=== PATIENT | female | born 1985 | race Caucasian/White ===

== ENCOUNTER 2017-01-27 07:55 | Emergency (ER) | payer SELFPAY ==
--- NOTE | 2017-01-27 08:17 | ER Document Report ---
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 prutitis, scratched, then looked like hives, less red today, few blisters now. No one else in family has them. Associated Symptoms: None Exacerbated by: Denies Relieved by: Denies - ROS ROS below otherwise negative: Yes Systems Reviewed and Negative: Yes All other systems reviewed and negative - REPRODUCTIVE LMP: 4 weeks Reproductive: DENIES: : - DERM Skin Color: Normal Past Medical History - General Information source: Patient - Social History Smoking Status: Never Smoker Frequency of alcohol use: None Drug Abuse: None Lives with: Parents Family History: Reviewed & Not Pertinent Patient has suicidal ideation: No Patient has homicidal ideation: No - Past Medical History Cardiac Medical History: Reports: Hx Hypercholesterolemia - Stopped taking medication 2 years ago, Hx Hypertension - White coat hypertension, no medications Pulmonary Medical History: Neurological Medical History: Endocrine Medical History: Renal/ Medical History: Denies: Hx Peritoneal Dialysis Musculoskeltal Medical History: Past Surgical History: Reports: Hx Cholecystectomy, Hx Gynecologic Surgery - D+ C and cone biopsy - Immunizations Immunizations up to date: Yes Hx Diphtheria, Pertussis, Tetanus Vaccination: Yes Vertical Provider Document - CONSTITUTIONAL Agree With Documented VS: Yes Exam Limitations: No Limitations General Appearance: No Apparent Distress - INFECTION CONTROL TRAVEL OUTSIDE OF THE [place] IN LAST 30 DAYS: No - HEENT HEENT: Normocephalic - NECK Neck: Supple - RESPIRATORY Respiratory: Breath Sounds Normal, No Respiratory Distress O2 Sat by Pulse Oximetry: 98 - CARDIOVASCULAR Cardiovascular: Regular Rate, Regular Rhythm - MUSCULOSKELETAL/EXTREMETIES Musculoskeletal/Extremeties: MAEW, FROM, Non-Tender - NEURO Level of Consciousness: Awake, Alert - DERM Integumentary: Rash - left posterior upper arm just above the elbow with 3 tiny vesicles and surrounding induation and pink warm area. no lymphangitis Course - Vital Signs Vital signs: Temp Pulse Resp BP Pulse Ox 97.7 F 89 20 154/100 H 98 01/27/17 07:57 01/27/17 07:57 01/27/17 07:57 01/27/17 07:57 01/27/17 07:57 Discharge - Discharge Clinical Impression: rash, Hives Cellulitis Qualifiers: Site of cellulitis: extremity Site of cellulitis of extremity: upper extremity Laterality: left Qualified Code(s): L03.114 - Cellulitis of left upper limb Condition: Good Disposition: HOME, SELF-CARE Instructions: Acute Urticaria ([facility]), Cellulitis ([facility]), Use of Diphenhydramine, High Blood Pressure ([facility]) Additional Instructions: see the print buyer see dr. conrad for your blood pressure take benadryl when you get home 25-50 every 4-6 hours for itch benadryl cream antibiotics to er if worse Prescriptions: Cephalexin Monohydrate [Keflex 500 mg Capsule] 500 mg PO QID #28 capsule Sulfamethoxazole/Trimethoprim [Sulfamethoxazole-Tmp Ds Tablet] 1 each PO BID # 14 tablet Referrals: RIYA ANTHONY DO [ACTIVE STAFF] - Follow up as needed MELITON CONRAD MD [Primary Care Provider] - Follow up in 3-5 days (see dr conrad for blood pressure treatment)
[2017-01-27] MEDS ORDERED: CEPHALEXIN 500 MG CAPSULE PO ONE (08:30)
[2017-01-27] MEDS ORDERED: SULFAMETHOXAZOLE/TRIMETHOPRIM 800-160 MG TABLET PO ONE (08:31)
[2017-01-27 08:51] VITALS: BP 160/92
== END 2017-01-27 08:56 | disposition home or self-care (01) ==
LOC: ER 07:55
DX: L50.9 Urticaria, unspecified (principal); L03.114 Cellulitis of left upper limb
CPT/HCPCS: 99283

== ENCOUNTER 2020-01-15 21:48 | Emergency (ER) | payer SELFPAY ==
--- NOTE | 2020-01-15 22:40 | ER Document Report ---
ED Medical Screen (RME) - General Stated Complaint: POSSIBLE PANIC ATTACK/SHORTNESS OF BREATH Time Seen by Provider: 01/15/20 22:32 Primary Care Provider: MELITON CONRAD MD [Primary Care Provider] - Follow up as needed Mode of Arrival: Ambulatory Information source: Patient Notes: HPI; 34-year-old female presents the emergency room stating that she is feeling extremely anxious today this evening around 9 PM she started having palpitations states she does not have a history of anxiety or panic attacks and is not currently on any medications. She denies any chest pain, shortness of breath, difficulty breathing. Patient states she does have a history of hypothyroidism and had an abnormal TSH 6 months ago but has not had her TSH rechecked since having her meds adjusted. PE: Alert and oriented x3. Anxious appearing, lungs: Clear to auscultation without rales, rhonchi, wheezes. Heart: Regular rate rhythm without murmurs, rubs, gallops. EKG was not on arrival as patient did not mention that she was having palpitations when she was being registered. I have greeted and performed a rapid initial assessment of this patient. A comprehensive ED assessment and evaluation of the patient, analysis of test results and completion of the medical decision making process will be conducted by additional ED providers. I have specifically instructed the patient or family members with the patient to immediately return to any nursing staff should anything change in the patient's condition or with their chief complaint. TRAVEL OUTSIDE OF THE [place] IN LAST 30 DAYS: No - Related Data Allergies/Adverse Reactions: oxycodone HCl [From Percocet] Allergy (Mild, Verified 01/27/17 07:58) Generalized Itching Past Medical History - Past Medical History Cardiac Medical History: Reports: Hx Hypercholesterolemia - Stopped taking medication 2 years ago, Hx Hypertension - White coat hypertension, no medications Pulmonary Medical History: Neurological Medical History: Endocrine Medical History: Renal/ Medical History: Denies: Hx Peritoneal Dialysis Musculoskeltal Medical History: Past Surgical History: Reports: Hx Cholecystectomy, Hx Gynecologic Surgery - D+C and cone biopsy - Immunizations Immunizations up to date: Yes Hx Diphtheria, Pertussis, Tetanus Vaccination: Yes Physical Exam - Vital signs Vitals: Temp Pulse Resp BP Pulse Ox 98.6 F 100 16 178/90 H 100 01/15/20 22:31 01/15/20 22:31 01/15/20 22:31 01/15/20 22:31 01/15/20 22:31 Course - Vital Signs Vital signs: Temp Pulse Resp BP Pulse Ox 98.6 F 100 16 178/90 H 100 01/15/20 22:31 01/15/20 22:31 01/15/20 22:31 01/15/20 22:31 01/15/20 22:31 Doctor's Discharge - Discharge Referrals: MELITON CONRAD MD [Primary Care Provider] - Follow up as needed
--- NOTE | 2020-01-15 23:14 | RADIOLOGY REPORT (SQ) ---
EXAM DESCRIPTION: XR CHEST 2 VIEWS COMPLETED DATE/TME: 01/15/2020 22:37 CLINICAL HISTORY: 34 years, Female, palpitations EXAM DESCRIPTION: CLINICAL HISTORY: palpitations COMPARISON: None. FINDINGS: Two views of the chest are submitted. Cardiac silhouette appears normal. No focal parenchymal or pleural disease. No acute bony abnormality. There is no significant pulmonary vascular engorgement. IMPRESSION: No evidence of acute cardiopulmonary disease.
[2020-01-15 23:55] LABS: ABSOLUTE EOSINOPHILS # (AUTO) 0.1 10^3/uL (0.0-0.6); ABSOLUTE LYMPHOCYTES (AUTO) 2.6 10^3/uL (0.5-4.7); ABSOLUTE MONOCYTES (AUTO) 0.4 10^3/uL (0.1-1.4); ABSOLUTE NEUT (AUTO) 6.4 10^3/uL (1.7-8.2); BASOPHILS % (AUTO) 0.4 % (0-2); EOSINOPHILS % (AUTO) 0.5 % (0-6); HEMATOCRIT 34.5 % (36.0-47.0); HEMOGLOBIN 12.1 g/dL (12.0-15.5); LYMPHOCYTES % (AUTO) 27.5 % (13-45); MEAN CORPUSCULAR HEMOGLOBIN 28.1 pg (27.0-33.4); MEAN CORPUSCULAR HGB CONC 34.9 g/dL (32.0-36.0); MEAN CORPUSCULAR VOLUME 80 fl (80-97); MONOCYTES % (AUTO) 4.2 % (3-13); PLATELET COUNT 387 10^3/uL (150-450); RED CELL DISTRIBUTION WIDTH 14.4 % (11.5-14.0); SEGMENTED NEUTROPHILS % (AUTO) 67.4 % (42-78); TOTAL CELLS COUNTED % (AUTO) 100 %; WHITE BLOOD COUNT 9.5 10^3/uL (4.0-10.5)
[2020-01-16 00:13] LABS: ALBUMIN 4.4 g/dL (3.5-5.0); ALKALINE PHOSPHATASE 58 U/L (38-126); ANION GAP 9 (5-19); ASPARTATE AMINO TRANSFERASE 17 U/L (14-36); BILIRUBIN,DIRECT 0.3 mg/dL (0.0-0.4); BILIRUBIN,TOTAL 0.3 mg/dL (0.2-1.3); BLOOD UREA NITROGEN 13 mg/dL (7-20); CALCIUM 9.8 mg/dL (8.4-10.2); CARBON DIOXIDE 25 mmol/L (22-30); CHLORIDE 106 mmol/L (98-107); GLUCOSE 106 mg/dL (75-110); POTASSIUM 4.5 mmol/L (3.6-5.0); TOTAL PROTEIN 7.3 g/dL (6.3-8.2)
--- NOTE | 2020-01-16 04:13 | ER Document Report ---
ED General - General Chief Complaint: Anxiety Stated Complaint: POSSIBLE PANIC ATTACK/SHORTNESS OF BREATH Time Seen by Provider: 01/15/20 22:32 Primary Care Provider: MELITON CONRAD MD [Primary Care Provider] - Follow up as needed Mode of Arrival: Ambulatory Information source: Patient TRAVEL OUTSIDE OF THE [place] IN LAST 30 DAYS: No - HPI Notes: Patient is a 34-year-old female with a history of hypertension and hypothyroidism who presents with a panic attack. Patient states that just prior to arrival she began feeling anxious, short of breath, and palpitations. She states her symptoms significantly improved but then returned prompting her to come to the ED. Patient reports mild chest pain and headache that have now reso lved. Patient states she currently just feels anxious and a little shaky. Patient denies dizziness, blurred vision, nausea, vomiting, abdominal pain, diarrhea, and constipation. She reports a prior panic attack a few years ago while on an airplane and states today's symptoms are similar but worse. She smokes occasionally and rarely drinks alcohol. She denies any recreational drug use. - Related Data Allergies/Adverse Reactions: oxycodone HCl [From Percocet] Allergy (Mild, Verified 01/27/17 07:58) Generalized Itching Past Medical History - General Information source: Patient - Social History Smoking Status: Current Some Day Smoker Chew tobacco use (# tins/day): No Frequency of alcohol use: Rare Drug Abuse: None Family History: Reviewed & Not Pertinent Patient has homicidal ideation: No - Past Medical History Cardiac Medical History: Reports: Hx Hypercholesterolemia - Stopped taking medication 2 years ago, Hx Hypertension - White coat hypertension, no medications Pulmonary Medical History: Neurological Medical History: Endocrine Medical History: Renal/ Medical History: Denies: Hx Peritoneal Dialysis Musculoskeletal Medical History: Past Surgical History: Reports: Hx Cholecystectomy, Hx Gynecologic Surgery - D+C and cone biopsy - Immunizations Immunizations up to date: Yes Hx Diphtheria, Pertussis, Tetanus Vaccination: Yes Review of Systems - Review of Systems Constitutional: No symptoms reported EENT: No symptoms reported Cardiovascular: See HPI Respiratory: See HPI Gastrointestinal: No symptoms reported Genitourinary: No symptoms reported Female Genitourinary: No symptoms reported Musculoskeletal: No symptoms reported Skin: No symptoms reported Hematologic/Lymphatic: No symptoms reported Neurological/Psychological: See HPI Physical Exam - Vital signs Vitals: Temp Pulse Resp BP Pulse Ox 98.6 F 100 16 178/90 H 100 01/15/20 22:31 01/15/20 22:31 01/15/20 22:31 01/15/20 22:31 01/15/20 22:31 - Notes Notes: PHYSICAL EXAMINATION: VITALS: Vitals reviewed and within normal limits. GENERAL: Well-appearing, well-nourished and in no acute distress. HEAD: Atraumatic, normocephalic. EYES: Pupils equal, round, and reactive to light, extraocular movements intact, sclera anicteric, conjunctiva are normal. ENT: Nares patent. Moist mucous membranes. Oropharynx clear without exudates. NECK: Normal range of motion, supple without lymphadenopathy. LUNGS: Breath sounds clear to auscultation bilaterally and equal. No wheezes rales or rhonchi. HEART: Regular, rate, and rhythm without murmurs. ABDOMEN: Soft, nontender, normoactive bowel sounds. No guarding, no rebound. No masses appreciated. EXTREMITIES: Normal range of motion, no pitting or edema. No cyanosis. NEUROLOGICAL: No focal neurological deficits. Moves all extremities spontaneously and on command. PSYCH: Normal mood, normal affect. SKIN: Warm, Dry, normal turgor, no rashes or lesions noted. Course - Re-evaluation Re-evalutation: Patient is a 34-year-old female who presents with shortness of breath, palpitations and anxiety which patient believes is an panic attack. Patient hypertensive with a blood pressure of 178/90, but vital signs otherwise unremarkable. On exam, patient is sitting comfortably on the bed and does not appear anxious. Lungs are clear to auscultation bilaterally with a regular heart rate and rhythm. CBC and CMP are both unremarkable and within normal limits. TSH normal and urine hCG negative. Chest x-ray negative. Initial troponin negative. Heart score of 1. PERC negative. 01/16/20 05:58 Patient had her repeat troponin drawn 20 minutes ago. She does not want to wait for it to result and would like to be discharged home. I feel this is safe as patient's heart score is 1 and she is PERC negative. I told the patient that I would call her and tell her to return if her troponin came back elevated. Based on her presentation and work-up I am suspicious for a panic attack. I instructed patient to follow-up with her primary care physician. Return precautions given. Patient understands and is in agreement with plan. 01/16/20 07:05 Repeat troponin negative. No need to contact the patient. - Vital Signs Vital signs: Temp Pulse Resp BP Pulse Ox 98.6 F 82 20 128/85 H 100 01/15/20 22:31 01/16/20 06:46 01/16/20 06:46 01/16/20 06:46 01/16/20 06:46 - Laboratory Result Diagrams: 01/15/20 23:41 01/15/20 23:41 Laboratory results interpreted by me: 01/15/20 23:41 Hct 34.5 L RDW 14.4 H - EKG Interpretation by Me Additional EKG results interpreted by me: Sinus rhythm with a rate of 76. QTc 428. Normal axis. No T wave inversions or ST segment changes in consecutive leads. Discharge - Discharge Clinical Impression: Panic attack, Anxiety, Shortness of breath, Palpitation Condition: Stable Disposition: HOME, SELF-CARE Instructions: Anxiety ([facility]) Additional Instructions: Panic Attack The cause of panic attacks is unknown. Symptoms can include chest pain, shortness of breath, palpitations, sweats, and a sense of smothering or impending doom. In time, the panic attacks can lead to generalized anxiety and phobias. Because the symptoms can mimic heart attack, pulmonary embolism, and other serious diseases, the physician has evaluated you for these conditions. There is no evidence of a serious problem. An acute panic attack usually goes away by itself without treatment. A severe attack can be treated with medicine to calm you. Long-term, antidepressant medicines may help prevent attacks. Counselling can also be very beneficial in dealing with panic attacks. Panic attacks are less likely if you are getting regular exercise, proper diet, and plenty of sleep. It's normal for panic attacks to cause many frightening symptoms. However, you should call or return if your symptoms change significantly or if you are worsening. Referrals: MELITON CONRAD MD [Primary Care Provider] - Follow up as needed
[2020-01-16 06:47] VITALS: BP 128/85
--- NOTE | 2020-01-16 08:58 | EKG REPORT ---
SEVERITY:- NORMAL ECG - SINUS RHYTHM : Confirmed by: Jagruti Coppola 16-Jan-2020 08:57:17
== END 2020-01-16 06:47 | disposition home or self-care (01) ==
LOC: ER 21:48
DX: F41.0 Panic disorder [episodic paroxysmal anxiety] (principal); F41.9 Anxiety disorder, unspecified; R06.02 Shortness of breath; R00.2 Palpitations; I10 Essential (primary) hypertension; F17.200 Nicotine dependence, unspecified, uncomplicated; E03.9 Hypothyroidism, unspecified; Z79.899 Other long term (current) drug therapy; Z88.6 Allergy status to analgesic agent; Z88.5 Allergy status to narcotic agent
CPT/HCPCS: 36415; 71046; 80053; 84443; 84484; 84703; 85025; 93005; 93010; 99285